=== PATIENT | female | born 1970 | race Hispanic/Latino ===

== ENCOUNTER 2018-01-30 20:31 | Observation (INO) | payer SELFPAY ==
--- NOTE | 2018-01-30 21:09 | RAD ---
AP CHEST: History: Chest pain. Date: 01-30-18 Comparison: 01-29-16 FINDINGS: AP chest demonstrates the lungs to be well aerated. No evidence of active intrathoracic disease seen. No evidence of effusions, pneumonia, or pneumothorax seen. IMPRESSION: Unremarkable AP chest. POS: [facility]
[2018-01-30 21:15] LABS: #Basophils 0.1 thou/uL (0.0-0.2); #Eosinphils 0.3 thou/uL (0.0-0.7); #Lymphocytes 2.6 thou/uL (1.20-3.40); #Monocytes 0.5 thou/uL (0.11-0.59); #Neutrophils 4.7 thou/uL (1.40-6.50); %Basophils 0.7 % (0.0-1.0); %Eosinophils 3.3 % (0.0-10.0); %Lymphocytes 31.9 % (21.0-51.0); %Monocytes 5.6 % (0.0-10.0); %Neutrophils 58.6 % (42.0-75.0); Hemoglobin 14.6 g/dL (12.0-16.0); Mean Corpuscular Hemoglobin 32.3 pg (27.0-31.0); Mean Corpuscular Volume 89.8 fl (81.0-99.0); Mean Platelet Volume 6.9 fL (7.4-10.4); Platelet Count 261 thou/uL (130-400); RBC Distribution Width 11.9 % (11.5-14.5); Red Blood Cell (RBC) Count 4.54 mill/uL (4.20-5.40); White Blood Cell (WBC) Count 8.1 thou/uL (4.8-10.8)
[2018-01-30] MEDS ORDERED: Nitroglycerin 0.4 MG TAB (25 Tab Bottle) ONE (21:28)
[2018-01-30 21:39] LABS: ALT (SGPT) 39 U/L (8-55); AST (SGOT) 24 U/L (5-34); Albumin 4.5 g/dL (3.5-5.0); Alkaline Phosphatase 73 U/L (40-150); Anion Gap 13 mmol/L (10-20); BUN (Urea Nitrogen) 10 mg/dL (7.0-18.7); Bilirubin, Total 0.5 mg/dL (0.2-1.2); CK (CPK) 81 U/L (29-168); Calc. Creatinine Clearance 0 mL/min (70-130); Calcium 9.4 mg/dL (7.8-10.44); Carbon Dioxide 20 mmol/L (22-29); Chloride 110 mmol/L (98-107); Estimated GFR-MDRD 75; Globulin 3.2 g/dL (2.4-3.5); Glucose 133 mg/dL (70-105); Potassium 3.6 mmol/L (3.5-5.1); Protein, Total 7.7 g/dL (6.0-8.3); Sodium 139 mmol/L (136-145)
[2018-01-30 21:51] LABS: CKMB 0.8 ng/mL (0-6.6); Troponin I 0.018 ng/mL (< 0.028)
[2018-01-30] MEDS ORDERED: Nitroglycerin 0.4 MG TAB (25 Tab Bottle) PO PRN (22:28)
[2018-01-30 22:48] LABS: Cardiac Risk 6.8 (Less than 4.5)
[2018-01-31 00:02] VITALS: BMI 28.7
[2018-01-31] MEDS ORDERED: Atorvastatin Calcium 40 MG TAB PO SCH ×2 (00:15→21:00)
[2018-01-31 01:44] LABS: Troponin I 0.025 ng/mL (< 0.028)
--- NOTE | 2018-01-31 03:34 | HP ---
CHIEF COMPLAINT: Chest pain. HISTORY OF PRESENT ILLNESS: Patient is a very pleasant 47-year-old female who presents to the [facility] today with chest pain. Patient states that she was folding clothes when she started having some p ressure-like sensation around her chest area. The patient states that she has a history of GERD, so she burped a little bit; however, her chest pain did not improve. Patient then stated that she got v kenny diaphoretic and had some shortness of breath. The patient states that 3 or 4 days ago, she had s ome sharp chest pain, which she thought most likely was secondary due to her reflux disease. Patient states that she still currently has chest pressure; however, it is better than when she came into [facility]. Denies any nausea or vomiting. The patient states that her chest pain does not radiate to her bilateral upper extremities or to her neck area. PAST MEDICAL HISTORY: History of GERD. PAST SURGICAL HISTORY: Cholecystectomy and tubal ligation. SOCIAL HISTORY: She is nonsmoker, nondrinker, no drug use. MEDICATIONS: She takes Nexium once a day. FAMILY HISTORY: Father had a history of stroke and [place] and diabetes. Mother had a history of smoking and diabetes. ALLERGIES: She has got no known drug allergies. REVIEW OF SYSTEMS: The 12-point review of systems all negative except for the ones mentioned above i n the HPI. PHYSICAL EXAMINATION: VITAL SIGNS: Temperature of 97.4, 137/78, respirations 18, 95% on room air. GENERAL: She is awake, alert, oriented x3, currently sitting up in bed, talking, does not in apparen t distress. CARDIOVASCULAR: S1, S2 present. No murmurs, rubs, or gallops. No reproducible pain upon palpation. LUNGS: Clear to auscultation. No rhonchi or wheezes noted. HEENT: Normocephalic, atraumatic. NECK: No lymphadenopathy noted. ABDOMEN: Soft, obese. Bowel sounds are present x2. No hepatomegaly or splenomegaly noted. NEUROLOGIC: Patient is awake, alert, oriented x3. No focal deficits noted. SKIN: No rashes or lesions noted. Warm and dry. PSYCHIATRIC: Normal affect. LABORATORY RESULTS: EKG interpretation the patient has mild ST-T wave inversion in V1, V2, and V6. LABORATORY RESULTS: As the following, WBCs of 8.1, hemoglobin of 14.6, hematocrit of 48.7. Chemistr y: Sodium of 139, potassium of 3.6, BUN of 10, creatinine of 0.82. Her triglycerides are elevated a t 336 and her cholesterol is 210. Her D-dimer was negative and her troponin x1 was negative. ASSESSMENT AND PLAN: The patient is a very pleasant 47-year-old female who presents to the hospital with complaints of chest pain. 1. Chest pain. Patient's troponin x1 was negative. We will trend x3. The patient does have some r isk factors. We will do a stress test in the morning. Her troponins continued to be negative, her l ipid levels are elevated. We will start patient on statin. I will hold off on any kind of blood thi nners for now. 2. Hyperlipidemia. We will start patient on atorvastatin. 3. Mildly elevated blood sugars of 133. We will check a hemoglobin A1c. 4. Obesity. Patient educated on diet, exercise, and weight loss. 5. Deep venous thrombosis prophylaxis. We will put the patient on subcu heparin.
[2018-01-31 05:06] LABS: Hemoglobin A1c 4.9 % (4.0-6.0)
[2018-01-31 05:11] LABS: Troponin I 0.021 ng/mL (< 0.028)
[2018-01-31] MEDS ORDERED: Aspirin 325 MG TAB PO SCH (09:00)
[2018-01-31] MEDS ORDERED: Famotidine/PF 20 mg/2ml Vial SLOW IVP SCH (09:00)
--- NOTE | 2018-01-31 10:10 | PDOC.PN ---
- Subjective Encounter Start Date: 01/31/18 Encounter Start Time: 11:30 Subjective: No further chest pain. Some substernal soreness if she takes in a -: deep breath. No other complaints. Ambulating well. Just had stress -: test done. - Objective MAR Reviewed: Yes Vital Signs & Weight: Vital Signs (12 hours) Temp Pulse Resp BP BP Pulse Ox 01/31/18 08:00 97.9 F 65 14 01/31/18 04:10 97.9 F 65 14 117/69 97 01/31/18 00:12 98.4 F 72 16 01/30/18 23:39 98.4 F 72 16 150/78 H 97 01/30/18 22:28 97 Weight Weight 167 lb 8 oz I&O: 01/30/18 01/31/18 02/01/18 06:59 06:59 06:59 Intake Total 360 Balance 360 Result Diagrams: 01/30/18 21:09 01/30/18 21:09 Phys Exam - Physical Examination Constitutional: NAD HEENT: moist MMs Respiratory: no wheezing, no rales, no rhonchi Cardiovascular: RRR, no significant murmur Gastrointestinal: soft, non-tender, positive bowel sounds Neurological: non-focal, moves all 4 limbs Psychiatric: normal affect, A&O x 3 Dx/Plan (1) Chest pain, rule out acute myocardial infarction Code(s): R07.9 - CHEST PAIN, UNSPECIFIED Status: Acute Comment: stress test today (2) Mixed hyperlipidemia Code(s): E78.2 - MIXED HYPERLIPIDEMIA Status: Acute Comment: starting statin (3) GERD (gastroesophageal reflux disease) Code(s): K21.9 - GASTRO-ESOPHAGEAL REFLUX DISEASE WITHOUT ESOPHAGITIS Status: Acute - Plan cont current plan of custodial if stress test negative * . - Discharge Day Encounter end time: 11:40
[2018-01-31 11:47] VITALS: BP 113/67; TEMP 97.8
--- NOTE | 2018-01-31 11:50 | NM ---
MYOCARDIAL PERFUSION AND QUANTITATIVE GATED SPECT STUDY: HISTORY: Chest pain. DOSE: 33 mCi of Technetium 99m Cardiolite for the stress portion of the exam and 11 mCi for the resting por tion of the exam. The patient was stressed using a Satish protocol. Pulse reached 150 b.p.m. which r epresents 86% of maximum age-predicted heart rate. FINDINGS: Myocardial perfusion and quantitative gated SPECT images obtained. Images demonstrate some apical thinning noted. No definite evidence of large reversible defect seen. No definite evidence of myocardial ischemia seen. Left ventricular ejection fraction measures 75%. IMPRESSION: No evidence of myocardial ischemia or scar. POS: [facility]
[2018-01-31] MEDS ORDERED: Acetaminophen 500 MG TAB PO PRN (13:13)
[2018-01-31] MEDS ORDERED: Famotidine 20 MG TAB PO SCH (21:00)
--- NOTE | 2018-02-01 04:31 | DIS ---
PRIMARY CARE PHYSICIAN: [facility]. REASON FOR ADMISSION: Chest pain. DIAGNOSES AT DISCHARGE: 1. Chest pain, noncardiac. 2. Mixed hyperlipidemia. 3. Gastroesophageal reflux disease. PROCEDURES: Nuclear medicine stress test showing no evidence for ischemic heart disease or scar. CONSULTATIONS: None. SUMMARY OF HOSPITAL COURSE: This is a 47-year-old obese female with history of gastroesopha geal reflux disease who had a pressure-like sensation in her chest area, she also got diaphoretic and short of breath, so she came into the hospital. She had normal EKG, negative D-dimer, negative trop onins. She was observed in the hospital overnight with normal telemetry monitoring. All of her card iac markers came back into negative. The patient had a stress test today, which resulted in a normal exam. She was doing better on the day of discharge, with still little bit of chest tightness issue, she took a deep breath in and no active pain. The patient did have a very elevated triglyceride, el evated total cholesterol and LDL on a fasting check this morning. She has been started on statin and we given dietary instructions and told to follow up with her primary care physician. DISCHARGE MANAGEMENT: Discharged home. Follow up with primary care physician in 1-2 weeks. ACTIVITY: As tolerated. DIET: Healthy heart diet. DISCHARGE MEDICATIONS: The patient is to resume her home medications. 1. Nexium 20 mg daily. 2. Atorvastatin 40 mg each night, 30 tablets dispensed.
--- NOTE | 2018-02-01 12:46 | EKG ---
Test Reason : Blood Pressure : / mmHG Vent. Rate : 073 BPM Atrial Rate : 073 BPM P-R Int : 150 ms QRS Dur : 092 ms QT Int : 422 ms P-R-T Axes : 024 020 078 degrees QTc Int : 464 ms Normal sinus rhythm Possible Lateral infarct , age undetermined Abnormal ECG Confirmed by WHITLEY WREN, MARIOLA ([id number]), assistant film editor MARTI MICHAEL ([id number]) on 02/01/2018 12:45:51 PM Referred By: Confirmed By:MARIOLA ARREAGA MD
== END 2018-01-31 13:39 | disposition home or self-care (01) ==
LOC: ERS 20:31 → 2SW 22:15
PROVIDERS: ADMIT Internal Medicine; ATTEND Internal Medicine
DX: R07.89 Other chest pain (principal); E78.2 Mixed hyperlipidemia; K21.9 Gastro-esophageal reflux disease without esophagitis; E66.9 Obesity, unspecified; Z68.28 Body mass index [BMI] 28.0-28.9, adult; Z79.899 Other long term (current) drug therapy
CPT/HCPCS: 36415; 71045; 78452; 80053; 80061; 82553; 83036; 83880; 84484; 85025; 85379; 93005; 93017; 94760; 96374; A9500; G0378; S0028

== ENCOUNTER 2019-12-10 19:46 | Emergency (ER) | payer SELFPAY ==
[2019-12-10 20:09] LABS: #Lymphocytes 1.8 thou/uL (1.20-3.40); #Monocytes 0.5 thou/uL (0.11-0.59); #Neutrophils 2.6 thou/uL (1.40-6.50); %Basophils 0.3 % (0.0-1.0); %Eosinophils 0.3 % (0.0-10.0); %Lymphocytes 36.3 % (21.0-51.0); %Monocytes 9.4 % (0.0-10.0); %Neutrophils 53.8 % (42.0-75.0); Hemoglobin 11.9 g/dL (12.0-16.0); Mean Corpuscular HGB CONC 34.3 g/dL (32.0-36.0); Mean Corpuscular Hemoglobin 28.8 pg (27.0-31.0); Mean Corpuscular Volume 83.8 fL (78.0-98.0); Mean Platelet Volume 7.5 fL (7.4-10.4); Platelet Count 198 thou/uL (130-400); RBC Distribution Width 13.5 % (11.5-14.5); Red Blood Cell (RBC) Count 4.13 mill/uL (4.20-5.40); White Blood Cell (WBC) Count 4.9 thou/uL (4.8-10.8)
--- NOTE | 2019-12-10 20:15 | RAD ---
XR Chest 1 View Portable History: Chest pain Comparison: Radiograph January 2018 Findings: Lungs are clear. No pneumothorax. No effusion. Cardiac silhouette and mediastinal contours are within normal limits. Old right distal clavicular fracture. Impression: No acute intrathoracic abnormality.
[2019-12-10 20:42] LABS: ALT (SGPT) 17 U/L (8-55); AST (SGOT) 25 U/L (5-34); Albumin 4.5 g/dL (3.5-5.0); Alkaline Phosphatase 79 U/L (40-110); Anion Gap 17 mmol/L (10-20); BUN (Urea Nitrogen) 9 mg/dL (7.0-18.7); Bilirubin, Total 0.4 mg/dL (0.2-1.2); Calc. Creatinine Clearance 0 mL/min (70-130); Carbon Dioxide 15 mmol/L (22-29); Chloride 110 mmol/L (98-107); Estimated GFR-MDRD Greater than 90; Globulin 3.2 g/dL (2.4-3.5); Glucose 105 mg/dL (70-105); Potassium 3.2 mmol/L (3.5-5.1); Protein, Total 7.7 g/dL (6.0-8.3); Sodium 139 mmol/L (136-145)
[2019-12-10] MEDS ORDERED: Ibuprofen 200 MG TAB ONE (20:44)
== END 2019-12-10 20:45 | disposition home or self-care (01) ==
LOC: ERS 19:46
DX: M94.0 Chondrocostal junction syndrome [Tietze] (principal); R07.2 Precordial pain; E78.5 Hyperlipidemia, unspecified; E78.00 Pure hypercholesterolemia, unspecified; K21.9 Gastro-esophageal reflux disease without esophagitis; Z79.899 Other long term (current) drug therapy
CPT/HCPCS: 36415; 71045; 80053; 83605; 84484; 85025; 93005

== ENCOUNTER 2022-09-01 12:44 | Outpatient (CLI) | payer OTHER | END 2022-09-01 12:45 | disposition home or self-care (01) | LOC: BICRAD 12:44 | PROVIDERS: ATTEND Nurse Practitioner Family | DX: S96.902A Unspecified injury of unspecified muscle and tendon at ankle and foot level, left foot, initial encounter (principal) ==

== ENCOUNTER 2022-09-29 13:55 | Outpatient (CLI) | payer OTHER | END 2022-09-29 13:56 | disposition home or self-care (01) | LOC: MRI 13:55 | PROVIDERS: ATTEND Family Medicine | DX: M79.672 Pain in left foot (principal); S93.492A Sprain of other ligament of left ankle, initial encounter; M65.872 Other synovitis and tenosynovitis, left ankle and foot; M25.472 Effusion, left ankle ==